=== PATIENT | male | born 1960 | race Two or more races ===

== ENCOUNTER 2017-06-17 07:04 | Outpatient (CLI) | payer OTHER ==
[~2017-06-17 07:04] MED LIST: DOLOGEN CAPLET1 TAB PO
== END 2017-06-17 07:15 | disposition home or self-care (01) ==
LOC: LAB 07:04
DX: R10.9 Unspecified abdominal pain (principal); R10.30 Lower abdominal pain, unspecified

== ENCOUNTER → 2017-06-20 | Outpatient (CLI) | payer OTHER | END | disposition home or self-care (01) | LOC: TOM 07:18 | DX: R10.2 Pelvic and perineal pain (principal) ==

== ENCOUNTER 2017-08-08 10:14 | Outpatient (CLI) | payer OTHER | END 2017-08-08 15:07 | disposition home or self-care (01) | LOC: RAD 501 10:14 | DX: M54.5 Low back pain (principal) ==

== ENCOUNTER 2018-07-17 08:41 | Outpatient (CLI) | payer OTHER | END 2018-07-17 08:52 | disposition home or self-care (01) | LOC: LAB 08:41 | DX: D64.89 Other specified anemias (principal); E11.9 Type 2 diabetes mellitus without complications; E03.8 Other specified hypothyroidism; E55.9 Vitamin D deficiency, unspecified ==

== ENCOUNTER 2019-12-15 09:41 | Outpatient (CLI) | payer OTHER | END 2019-12-15 09:54 | disposition home or self-care (01) | LOC: RAD 09:41 | PROVIDERS: ATTEND Physical Medicine & Rehabilitation | DX: M54.5 Low back pain (principal); M54.16 Radiculopathy, lumbar region | CPT/HCPCS: 72148 ==

== ENCOUNTER 2021-11-22 08:08 | Outpatient (CLI) | payer OTHER | END 2021-11-22 08:20 | disposition home or self-care (01) | LOC: RAD 08:08 | PROVIDERS: ATTEND Internal Medicine | DX: I10 Essential (primary) hypertension (principal); M54.50 Low back pain, unspecified; E78.9 Disorder of lipoprotein metabolism, unspecified; N41.0 Acute prostatitis ==

== ENCOUNTER 2021-12-21 09:29 | Outpatient (CLI) | payer OTHER | END 2021-12-21 09:37 | disposition home or self-care (01) | LOC: TOM 09:29 | PROVIDERS: ATTEND Specialist | DX: K40.91 Unilateral inguinal hernia, without obstruction or gangrene, recurrent (principal) ==

== ENCOUNTER 2022-04-04 06:35 | Day surgery (SDC) | payer OTHER ==
[2022-04-04] MEDS ORDERED: KETO10TA2 PO (09:44)
[2022-04-04] MEDS ORDERED: TRAMADOL HCL50 MG PO (09:44)
[2022-04-04] MEDS ORDERED: MIRALAX17 GM PO (09:44)
[2022-04-04] MEDS ORDERED: TYLENOL ARTHRI650 MG PO (09:44)
== END 2022-04-04 17:00 | disposition home or self-care (01) ==
LOC: CIR.AMB 06:35
PROVIDERS: ATTEND Surgery
DX: K40.91 Unilateral inguinal hernia, without obstruction or gangrene, recurrent (principal); Z53.09 Procedure and treatment not carried out because of other contraindication; Z20.822 Contact with and (suspected) exposure to COVID-19; E78.5 Hyperlipidemia, unspecified; F17.210 Nicotine dependence, cigarettes, uncomplicated; F12.90 Cannabis use, unspecified, uncomplicated

== ENCOUNTER 2023-09-10 07:03 | Outpatient (CLI) | payer OTHER ==
[~2023-09-10 07:03] MED LIST changes: +KETO10TA2 PO; +MIRALAX17 GM PO; +TRAMADOL HCL50 MG PO; +TYLENOL ARTHRI650 MG PO
== END 2023-09-10 07:05 | disposition home or self-care (01) ==
LOC: NUCLEAR 07:03
PROVIDERS: ATTEND Surgery
DX: K81.1 Chronic cholecystitis (principal); K82.8 Other specified diseases of gallbladder

== ENCOUNTER 2024-08-11 07:11 | Outpatient (CLI) | payer OTHER | END 2024-08-11 07:53 | disposition home or self-care (01) | LOC: TOM 07:11 | PROVIDERS: ATTEND Urology | DX: M54.50 Low back pain, unspecified (principal); M16.11 Unilateral primary osteoarthritis, right hip; M16.12 Unilateral primary osteoarthritis, left hip; R31.0 Gross hematuria ==